=== PATIENT | female | born 1985 | race Caucasian/White ===

== ENCOUNTER 2017-03-23 12:15 | Emergency (ER) | payer BC ==
[~2017-03-23] VITALS: Ht 160 cm; Wt 112.5 kg
[~2017-03-23 12:15] MED LIST: CHN/1 PO; LEVO-217 PO; LEVO175T3 PO; LORA-741 PO; MELO7.5T5 PO; SERT-234 PO
[2017-03-23 12:29] VITALS: TEMP 36.8; Ht 160 cm; Wt 112.5 kg
[2017-03-23] MEDS ORDERED: AMOX875T PO (13:53)
[2017-03-23] MEDS ORDERED: FLUC150T PO (13:53)
[2017-03-23 14:14] VITALS: BP 136/91; PULSE 74; O2SAT 98
--- NOTE | 2017-03-24 10:02 | EMERGENCY ROOM VISIT NOTE ---
ED Visit Note First contact with patient: 12:47 Chief Complaint: My kitten bit my right thumb. History of Present Illness: Ms. Estrella is a 32-year-old white female who ambulates into the ED accompanied by male friend complaining of multiple cat bites to the right thumb. She reports she has kittens in her house. She woke this morning and found one of the kittens and it appeared to be sick. She attempted to give him a bath because she was concerned about fleas and it bit her right thumb; this happened approximately 40 minutes ago. She goes on a reports after the kitten bit her from it had a seizure and . Additionally she reports the kitten did not have any rabies immunizations but has not been out of the house since its been born. Currently she is complaining of right thumb pain. She describes her pain as a throbbing sensation. She rates her discomfort 4/10. Her pain is nonradiating. Her pain worsens with palpation. She has not identified any alleviating factors related to the pain. She has not taken any medications for pain prior to arrival at the hospital. She denies any associated symptoms including fevers , chills, sweats, skin eruptions, thumb weakness/numbness/tingling. Review of Systems: As noted above in history of present illness. 5 body systems were reviewed and found to be negative as noted above. Past Medical History: Hypothyroidism, status post cholecystectomy. Current Medications: Moban, levothyroxine, Zoloft, Ativan. Allergies to Medications: Patient denies. Social History: Patient is currently employed; she feels safe in her home environment; she admits to tobacco and alcohol use. Tetanus Immunization Status: Patient reports up-to-date. Physical Examination: Vital Signs: Date Time Temp Pulse Resp B/P (MAP) Pulse Ox O2 Delivery O2 Flow Rate FiO2 03/23/17 14:14 74 16 136/91 98 03/23/17 12:29 36.8 84 16 146/101 98 Room Air GENERAL: 32-year-old female in mild distress due to pain, nontoxic-appearing, afebrile and hemodynamically stable. NEUROLOGICAL: Awake, alert and oriented to person, place and time. Answering questions appropriately and following commands. SKIN: Warm, dry and pink. Right Thumb: 5 puncture wounds are noted to the thumb. There is no local erythema or edema. The wounds are not bleeding. RIGHT HAND: No gross bony deformity. Thumb: Please note soft tissue description above under SKIN. No gross bony deformity. No tenderness over the interphalangeal joint or the MCP joint. Full range of motion in all movements of the thumb including flexion, extension, abduction and abduction of the MCP joint and flexion and extension of the interphalangeal joint. Throughout the thumb the skin was warm and pink and capillary refill was brisk. She is able to distinguish light sensations through all dermatomes. No other injuries were noted to the hand. ED Course: Patient is assessed as noted above. Patient's medication list was reviewed. I did contact the Department of Health for her case; the patient did have the carcass of the animal available for testing and she was referred to one of the animal offices at [facility] to deliver the animal for testing or Patient was educated about today's findings and instructed on her treatment plan ; she verbalized understanding and agreement with this plan. Clinical Impression: Right thumb cat bite. Disposition: Patient discharged home in stable condition accompanied by a male friend; prior to departure she was reassessed and subjectively reported she was feeling better. Plan: Patient was placed on Augmentin 875 mg 2 times a day for 10 days. Patient did report when she uses Augmentin she usually develops a yeast infection so she was given a prescription for 150 mg of Diflucan for any presentation of yeast infections. Patient was encouraged to alternate ibuprofen and acetaminophen as needed for pain. Patient was encouraged use ice for pain and swelling. Patient was educated on wound care and signs of infection. Patient was informed that the Department of Health will contact her after the animal was tested if she needed to come back to the hospital for rabies. Patient was encouraged return ED for any signs of infection, uncontrolled pain or any new/concerning symptoms.
== END 2017-03-23 14:15 | disposition home or self-care (01) ==
LOC: C.EDB 12:15 → C.EDD 14:15
DX: S61.051A Open bite of right thumb without damage to nail, initial encounter (principal); W55.01XA Bitten by cat, initial encounter; E03.9 Hypothyroidism, unspecified; F17.200 Nicotine dependence, unspecified, uncomplicated; Z90.49 Acquired absence of other specified parts of digestive tract; Z79.899 Other long term (current) drug therapy